=== PATIENT | male | born 1955 | race Caucasian/White ===

== ENCOUNTER 2017-11-16 15:41 | Emergency (ER) | payer OTHER ==
[~2017-11-16] VITALS: Ht 172.7 cm; Wt 77.7 kg
[2017-11-16 15:47] VITALS: BP 170/96
--- NOTE | 2017-11-16 15:52 | NUR ---
PER DR DAVALOS, PT AMBULATES BACK TO THE LOBBY WITHOUT DIFFICULTY
--- NOTE | 2017-11-16 17:05 | NUR ---
PT AMBULATED TO BED 12
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
[2017-11-16] MEDS ORDERED: KETOROLAC 60 MG/2 ML VIAL IM ONE (17:40)
[2017-11-16 18:14] VITALS: BP 138/94
--- NOTE | 2017-11-16 18:14 | NUR ---
Patient discharged with v/s stable. Written and verbal after care instructions given and explained. Patient alert, oriented and verbalized understanding of instructions. Ambulatory with steady gait. All questions addressed prior to discharge. ID band removed. Patient advised to follow up with PMD. Rx of Monitor and Motrin given. Patient educated on indication of medication including possible reaction and side effects. Opportunity to ask questions provided and answered.
== END 2017-11-16 18:14 | disposition home or self-care (01) ==
LOC: MED 15:41
DX: Z04.1 Encounter for examination and observation following transport accident (principal); R10.9 Unspecified abdominal pain; V49.49XA Driver injured in collision with other motor vehicles in traffic accident, initial encounter; Y93.89 Activity, other specified; Y92.488 Other paved roadways as the place of occurrence of the external cause; Y99.8 Other external cause status
CPT/HCPCS: 71101; 96372; 99284; J1885